=== PATIENT | female | born 1940 | race Hispanic/Latino ===

== ENCOUNTER → 2018-03-13 | Outpatient (CLI) | payer OTHER ==
[~2018-03-13] MED LIST: CHOL100040 PO; LISI1TAB13 PO; RALO60TA PO; SIMV40TA59 PO
== END | disposition home or self-care (01) ==
LOC: RAH 11:44
PROVIDERS: ATTEND Family Medicine
DX: Z12.31 Encounter for screening mammogram for malignant neoplasm of breast (principal)
CPT/HCPCS: 77067

== ENCOUNTER 2019-02-25 06:00 | Day surgery (SDC) | payer OTHER ==
[~2019-02-25] VITALS: Ht 149.9 cm; Wt 63.8 kg
[~2019-02-25 06:00] MED LIST changes: -LISI1TAB13 PO; +LISI1TAB29 PO; +SODIUM CHLORIDE 0.9% 1000ML 1,000 ML IV ONE
[2019-02-25 06:59] VITALS: BP 127/59
[2019-02-25] MEDS ORDERED: ALEN70TA10 PO (07:34)
[2019-02-25] MEDS ORDERED: GLIM4TAB5 PO (07:34)
[2019-02-25] MEDS ORDERED: ASPI-555 PO (07:34)
[2019-02-25] MEDS ORDERED: ATOR20TA65 PO (07:34)
[2019-02-25] MEDS ORDERED: PROPOFOL 10 MG/ML 20ML VIAL IV ONE (08:26)
[2019-02-25] MEDS ORDERED: LIDOCAINE HCL 2% 20ML ONE (08:26)
[2019-02-25] MEDS ORDERED: SODIUM CHLORIDE 0.9% 10 ML VIAL ONE (08:31)
[2019-02-25] MEDS ORDERED: PHENYLEPHRINE HCL 10 MG/ML 1ML VIAL IV ONE (08:31)
[2019-02-25 08:45] VITALS: BP 140/63
[2019-02-25 08:50] VITALS: BP 108/81
[2019-02-25 08:55] VITALS: BP 110/81
[2019-02-25 09:00] VITALS: BP 116/81
[2019-02-25 09:05] VITALS: BP 114/81
--- NOTE | 2019-02-25 09:15 | NUR ---
dc pt dc home via wc no distress noted. pt denied any pain or discomforts. pt accompanied by daughter.
== END 2019-02-25 09:15 | disposition home or self-care (01) ==
LOC: ENDO 06:00 → DAH 06:00 → ENDO 09:15
PROVIDERS: ATTEND Internal Medicine Gastroenterology
DX: Z12.11 Encounter for screening for malignant neoplasm of colon (principal); D12.4 Benign neoplasm of descending colon; D12.3 Benign neoplasm of transverse colon; M81.0 Age-related osteoporosis without current pathological fracture; E11.22 Type 2 diabetes mellitus with diabetic chronic kidney disease; I12.9 Hypertensive chronic kidney disease with stage 1 through stage 4 chronic kidney disease, or unspecified chronic kidney disease; N18.3 Chronic kidney disease, stage 3 (moderate); E78.00 Pure hypercholesterolemia, unspecified; E11.42 Type 2 diabetes mellitus with diabetic polyneuropathy; Z86.010 Personal history of colon polyps; Z80.0 Family history of malignant neoplasm of digestive organs; Z79.82 Long term (current) use of aspirin; Z79.899 Other long term (current) drug therapy
CPT/HCPCS: 45385; 82948; 88305; A4215; A4221; A4222; A4223; A4606; A4615; A4663; J2370; J2704; J3490; J7030; 45380

== ENCOUNTER → 2019-03-17 | Outpatient (CLI) | payer OTHER ==
[~2019-03-17] MED LIST changes: +ALEN70TA10 PO; +ASPI-555 PO; +ATOR20TA65 PO; +GLIM4TAB5 PO; -RALO60TA PO; -SIMV40TA59 PO; -SODIUM CHLORIDE 0.9% 1000ML 1,000 ML IV ONE
== END | disposition home or self-care (01) ==
LOC: RAH 10:00
PROVIDERS: ATTEND Family Medicine
DX: Z12.31 Encounter for screening mammogram for malignant neoplasm of breast (principal); E66.09 Other obesity due to excess calories
CPT/HCPCS: 77067

== ENCOUNTER → 2020-03-19 | Outpatient (CLI) | payer OTHER ==
[~2020-03-19] MED LIST changes: -ALEN70TA10 PO; +ALEN70TA69 PO; -ASPI-555 PO; +ASPI-556 PO; +GLIM4TAB36 PO; -GLIM4TAB5 PO
== END | disposition home or self-care (01) ==
LOC: RAH 09:08
PROVIDERS: ATTEND Family Medicine
DX: Z12.31 Encounter for screening mammogram for malignant neoplasm of breast (principal)
CPT/HCPCS: 77067

== ENCOUNTER → 2021-03-21 | Outpatient (CLI) | payer OTHER ==
[~2021-03-21] MED LIST changes: -ALEN70TA69 PO; +ALEN70TA80 PO; -LISI1TAB29 PO; +LISI1TAB53 PO
== END | disposition home or self-care (01) ==
LOC: RAH 08:55
PROVIDERS: ATTEND Family Medicine
DX: Z12.31 Encounter for screening mammogram for malignant neoplasm of breast (principal)
CPT/HCPCS: 77067

== ENCOUNTER → 2022-03-22 | Outpatient (CLI) | payer OTHER | END | disposition home or self-care (01) | LOC: RAH 09:47 | PROVIDERS: ATTEND Family Medicine | DX: Z12.31 Encounter for screening mammogram for malignant neoplasm of breast (principal) | CPT/HCPCS: 77063; 77067 ==

== ENCOUNTER → 2023-03-23 | Outpatient (CLI) | payer OTHER | END | disposition home or self-care (01) | LOC: RAH 09:57 | PROVIDERS: ATTEND Family Medicine | DX: Z12.31 Encounter for screening mammogram for malignant neoplasm of breast (principal) | CPT/HCPCS: 77067 ==

== ENCOUNTER → 2024-03-24 | Outpatient (CLI) | payer OTHER ==
--- NOTE | 2024-03-24 10:11 | HMCIMG ---
SCREENING MAMMOGRAM REASON: Annual Exam COMPARISON: 03/23/2023 TECHNIQUE: CC and MLO views of the bilateral breasts were performed.CAD was performed as well. FINDINGS: Parenchymal density: There are scattered areas of fibroglandular density. There are no focal mass lesions. There are no pathologic appearing calcifications. There is no evidence of architectural distortion or skin thickening. IMPRESSION: Normal screening mammogram The patient was entered into a reminder system with a target due date for their next mammogram. BI-RADS CATEGORY 1: NEGATIVE Recommend monthly self breast exam as well as annual clinical examination. A negative x-ray should not delay biopsy if a dominant or clinically suspicious mass is present, since 8-10% of cancers are not identified by mammography. Dense breasts particularly, may obscure an underlying neoplasm. Some of these may be detected clinically and therefore, clinical examination is an essential part of breast evaluation.
== END | disposition home or self-care (01) ==
LOC: RAH 09:03
PROVIDERS: ATTEND Family Medicine
DX: Z12.31 Encounter for screening mammogram for malignant neoplasm of breast (principal); R92.30 Dense breasts, unspecified
CPT/HCPCS: 77067

== ENCOUNTER 2024-09-05 18:02 | Observation (INO) | payer OTHER ==
[~2024-09-05] VITALS: Ht 134.6 cm; Wt 65.9 kg
--- NOTE | 2024-09-05 18:56 | EKG ---
[facility] Test Date: 2024-09-05 Test Time: 18:53:30 Pat Name: LIBIA SEAY Department: ED Room: 317 Gender: F Pig Handler: [id number] : 1940 Requested By: JIMENA NOLAND Order Number: [id number] Reading MD: Carolina Perez Measurements Intervals [place] Rate: 61 P: 40 NE: 132 QRS: -14 QRSD: 75 T: 35 QT: 411 QTc: 413 Interpretive Statements Sinus rhythm Inferior infarct, old No previous ECG available for comparison Electronically Signed On 09-06-2024 14:29:44 CDT by Carolina Perez Please click the below link to view image of tracing.
[2024-09-05] MEDS: ondanSETRON 4MG INJ IVP ONE ×2 (19:03→20:40)
[2024-09-05] MEDS: 0.9% NACL 500ML IV.SOLN 500 ML IV ONE (19:03)
--- NOTE | 2024-09-05 19:14 | HMCIMG ---
PORTABLE CHEST RADIOGRAPH INDICATION: sob COMPARISON: 05/11/2012 FINDINGS: alarm security or surveillance monitor leads overlie the field of view. Heart size is normal. Mild calcific plaque is present along the aortic arch moe. The pulmonary vascularity and mikki appear normal. No abnormal pulmonary parenchymal opacity or consolidation identified. No significant pleural effusion noted. No pneumothorax detected. IMPRESSION: No radiographic evidence for any acute cardiopulmonary process.
[2024-09-05 19:18] LABS: HEMATOCRIT 38.4 % (36-48); LYMPHOCYTES # (AUTO) 0.7 K/uL (1.0-4.8); LYMPHOCYTES % (AUTO) 27.4 % (21.0-51.0); MEAN CORPUSCULAR HEMOGLOBIN 30.3 pg (27.0-33.0); MEAN CORPUSCULAR HGB CONC 33.3 g/dL (32.0-36.0); MEAN CORPUSCULAR VOLUME 90.8 fL (79-99); MONOCYTES # (AUTO) 0.3 K/uL (0.1-1.0); NEUTROPHILS # (AUTO) 1.7 K/uL (1.8-7.7); NEUTROPHILS % (AUTO) 62.6 % (40.0-77.0); PLATELET COUNT (AUTO) 181 K/uL (130-400); RED BLOOD CELL COUNT(AUTO) 4.23 MIL/uL (4.00-5.50); RED CELL DISTRIBUTION WIDTH 12.5 % (11.0-15.5); WHITE BLOOD COUNT (AUTO) 2.7 K/uL (4.8-10.8)
[2024-09-05 19:19] LABS: CREATININE 1.1 mg/dL (0.5-1.0); POTASSIUM 4.4 mmol/L (3.5-5.1)
[2024-09-05 19:25] LABS: ALBUMIN 3.6 g/dL (3.5-5.0); BILIRUBIN,DIRECT 0.1 mg/dL (0.0-0.3); BILIRUBIN,TOTAL 0.5 mg/dL (0.2-1.0); MAGNESIUM 2.3 mg/dL (1.80-2.40); TOTAL PROTEIN, SERUM 7.4 g/dL (6.0-8.3)
[2024-09-05 19:30] LABS: B-TYPE NATRIURETIC PEPTIDE 44 pg/mL (0-100)
[2024-09-05 19:58] LABS: BAND NEUTROPHILS % (MANUAL) 1 % (0-2); LYMPHOCYTES % (MANUAL) 25 % (22-44); MAN.DIFF COMMENT-IMPRESSION MANUAL DIFFERENTIAL; MONOCYTES % (MANUAL) 15 % (2-9); PLATELET MORPHOLOGY COMMENT ADEQUATE; SEGMENTED NEUTROPHILS % 59 % (40-70); TOTAL CELLS COUNTED 100; WBC MORPHOLOGY CONSISTENT W/DIFF
--- NOTE | 2024-09-05 20:01 | HMCIMG ---
CT HEAD WITHOUT CONTRAST INDICATION: Nausea vomiting and dizziness TECHNIQUE: Noncontrast axial helical CT images from the vertex through the skull base using 5 mm slice thickness without contrast material. CT was performed with one or more of the following dose reduction techniques: Automated exposure control, adjustment of the mA and/or kV according to patient size, or use of iterative reconstruction technique. COMPARISON: None FINDINGS: The cerebral and cerebellar hemispheres are age-appropriate in appearance. No evidence for abnormal extra-axial fluid collections or masses. The ventricles and sulci are normal in size and configuration. No evidence for intracranial parenchymal, epidural, or subdural hemorrhage, mass effect or midline shift. The hayes-white matter differentiation is well preserved. No secondary evidence to suggest acute ischemia. The brainstem and cerebellum appear normal. The visualized orbits appear unremarkable. The visible paranasal sinuses and mastoid air cells are clear. The calvarium appears normal. IMPRESSION: No acute intracranial process identified.
--- NOTE | 2024-09-05 20:26 | ERN ---
General Chief Complaint: Nausea,Vomiting,Diarrhea Stated Complaint: COVID+, MULTIPLE COMPLAINTS Time Seen by MD: 18:03 Time Seen by Midlevel: 18:03 Source: patient History of Present Illness Initial Comments The patient is an 84-year-old female with a past medical history of type 2 diabetes, hypertension, and chronic kidney disease presenting to the emergency department for evaluation of nausea/vomiting, and dizziness. The patient states she has been unable to hold any food down for the last couple of days. She tested positive for COVID last week. She saw her primary care doctor and was started on azithromycin but she has been unable to keep anything down including medication. She reports diffuse abdominal pain that is rated 8/10. Allergies: Coded Allergies: No Known Allergies (Unverified Allergy, 11/13/12) Home Meds Reported Medications Atorvastatin Calcium (Atorvastatin Calcium) 20 Mg Tablet, 20 MG PO DAILY, TAB 02/25/19 Alendronate Sodium (Alendronate Sodium) 70 Mg Tablet, 70 MG PO QWEEK, TAB 02/25/19 Aspirin (Aspir 81) 81 Mg Tablet.dr, 81 MG PO DAILY, TAB 02/25/19 Glimepiride (Glimepiride) 4 Mg Tablet, 4 MG PO DAILY, TAB 02/25/19 Cholecalciferol (Vitamin D3) (Vitamin D3) 1,000 Unit Capsule, 1000 UNIT PO DAILY, CAP 12/31/13 Lisinopril/Hydrochlorothiazide (Lisinopril-Hctz 20-25 mg Tab) 1 Each Tablet, 1 EACH PO DAILY, TAB 12/31/13 Past Medical History Past Medical History: Diabetes-Type II, Hypertension, Renal Disese Past Surgical History: None ROS Dictation CONSTITUTIONAL: Negative except for HPI HEAD/FACE: Negative except for HPI EENT: Negative except for HPI RESPIRATORY: Negative except for HPI GASTROINTESTINAL/ABDOMINAL: Negative except for HPI GENITOURINARY: Negative except for HPI MUSCULOSKELETAL: Negative except for HPI INTEGUMENTARY: Negative except for HPI NEUROLOGICAL/PSYCH: Negative except for HPI HEMATOLOGIC/LYMPHATIC: Negative except for HPI All Systems Negative, Except as noted above. 13 point review of systems assessed and all negative except for above. Physical Exam Physical Exam Dictation Vital Signs reviewed General Appearance: Alert, oriented x 3, no acute distress, well developed, nourished. Head and Face: non-traumatic. Eyes: PERRL, pink conjunctivas, eyelid no trauma, anterior chamber with arcus senilis. Ears: Pinnas intact and no signs of trauma or erythema ear canals clear and no discharge TM no erythema Nose: No discharge, no bleeding. Oropharynx: Mouth normal, tongue pink, pharynx clear,no erythema, tonsils no exudates, no abscesses noted, mucous membrane moist Neck: Supple, non-tender, no thyromegaly, no masses, no JVD, no bruits Breast:Deferred Chest:No tenderness, no crepitus, no paradoxical movement, no retractions Lungs:Clear, well-ventilated, symmetric, no rales, no wheezing, no rhonchi, no stridor, good breath sounds bilaterally Heart: Regular rate, regular rhythm, no murmur, no gallops Vascular: no peripheral edema, Abdomen: Soft, positive bowel sounds, nondistended, no guarding, nontender, no rebound, no masses no hepatomegaly, no splenomegaly, no Mansfield's sign, no hernias. Rectal: Deferred Genital: Deferred Neurological: Subjective dizziness, normal speech, unable to ambulate in his straight line secondary to dizziness Musculoskeletal: Neck nontender, full range of motion, back nontender, full range of motion, Extremities: nontender, full range of motion Skin: Color pink, dry, no turgor, no rash, no lacerations, no abrasions, no contusions. Lymphatic: Deferred Results Laboratory and Microbiology Lab and Micro Result Laboratory Tests Test 09/05/24 19:00 White Blood Count 2.7 K/uL (4.8-10.8) L Red Blood Count 4.23 MIL/uL (4.00-5.50) Hemoglobin 12.8 g/dL (12.0-16.0) Hematocrit 38.4 % (36-48) Mean Corpuscular Volume 90.8 fL (79-99) Mean Corpuscular Hemoglobin 30.3 pg (27.0-33.0) Mean Corpuscular Hemoglobin Concent 33.3 g/dL (32.0-36.0) Red Cell Distribution Width 12.5 % (11.0-15.5) Platelet Count 181 K/uL (130-400) Mean Platelet Volume 10.1 fL (7.5-10.5) Immature Granulocyte % (Auto) 0.0 % (0-1) Neutrophils (%) (Auto) 62.6 % (40.0-77.0) Lymphocytes (%) (Auto) 27.4 % (21.0-51.0) Monocytes (%) (Auto) 10.0 % (3.0-13.0) Eosinophils (%) (Auto) 0.0 % (0.0-8.0) Basophils (%) (Auto) 0.0 % (0.0-5.0) Neutrophils # (Auto) 1.7 K/uL (1.8-7.7) L Lymphocytes # (Auto) 0.7 K/uL (1.0-4.8) L Monocytes # (Auto) 0.3 K/uL (0.1-1.0) Eosinophils # (Auto) 0.00 K/uL (0.00-0.70) Basophils # (Auto) 0.00 K/uL (0.00-0.20) Absolute Immature Granulocyte (auto 0.00 K/uL (0-1) Segmented Neutrophils % 59 % (40-70) Band Neutrophils % 1 % (0-2) Lymphocytes % (Manual) 25 % (22-44) Monocytes % (Manual) 15 % (2-9) H Nucleated Red Blood Cells 0.0 % (0.0-0.19) Differential Comment MANUAL DIFFERENTIAL White Cell Morphology Comment CONSISTENT W/DIFF Platelet Morphology Comment ADEQUATE Red Blood Cell Morphology See comments Sodium Level 136 mmol/L (136-145) Potassium Level 4.4 mmol/L (3.5-5.1) Chloride Level 98 mmol/L (101-111) L Carbon Dioxide Level 27 mmol/L (21-32) Blood Urea Nitrogen 20 mg/dL (7-18) H Creatinine 1.1 mg/dL (0.5-1.0) H Glomerular Filtration Rate Calc 50 mL/min (>90) Random Glucose 160 mg/dL (70-105) H Total Calcium 8.9 mg/dL (8.5-10.1) Magnesium Level 2.30 mg/dL (1.80-2.40) Total Bilirubin 0.5 mg/dL (0.2-1.0) Direct Bilirubin 0.1 mg/dL (0.0-0.3) Aspartate Amino Transf (AST/SGOT) 55 U/L (10-37) H Alanine Aminotransferase (ALT/SGPT) 58 U/L (12-78) Alkaline Phosphatase 69 U/L (50-136) Total Creatine Kinase 56 U/L (21-232) # Troponin I High Sensitivity 11 ng/L (4-50) B-Type Natriuretic Peptide 44 pg/mL (0-100) Total Protein 7.4 g/dL (6.0-8.3) Albumin 3.6 g/dL (3.5-5.0) Lipase 63 U/L (16-77) Labs Reviewed?: Yes MDM MDM: Differential diagnosis: COVID-19, dehydration, electrolyte abnormality Rationale: Tests considered and ordered secondary to shared decision making include: Previous outside records reviewed: Old ER visits. Risk of complication and/or morbidity or mortality of patient management: None Medications-Per medication reconciliation Need for hospitalization: Patient does meet criteria for hospitalization. Need for emergency major/minor surgery: No There are no social concerns with this patient. Prescription drug management Prescriptions will include symptomatic care Patient's prior external medical records from other ER visits were reviewed by me as indicated. Prior testing and results from previous visits were reviewed. Prior tests were taken into account with medical decision making and resource utilization, independent historian/historians were used to obtain complete medical history. I independently interpreted the test that were performed, results were reviewed by me and considered findings on radiology if ordered. Medical management and examination interpretation discussions were had by me with other qualified healthcare professionals as indicated for the patient's care. ED Course Orders Procedure Category Date Status Time 12 Lead Ekg Tracing- EKG 09/05/24 Complete Technical 18:22 Cbc With Differential LAB 09/05/24 Complete 18:22 Basic Metabolic Panel LAB 09/05/24 Complete 18:22 B-Type Natriuretic LAB 09/05/24 Complete Peptide 18:22 Creatine Kinase, Total LAB 09/05/24 Complete 18:22 Magnesium LAB 09/05/24 Complete 18:22 Hepatic Function Panel LAB 09/05/24 Complete 18:22 Lipase LAB 09/05/24 Complete 18:22 Troponin I High LAB 09/05/24 Complete Sensitivity 18:22 Chest 1vw RAD 09/05/24 Resulted 18:22 Ct Head/Brain W/O CT 09/05/24 Resulted Contrast 18:22 Ondansetron 4mg Inj PHA 09/05/24 Complete (Zofran 4mg Inj) 18:30 0.9% Nacl 500ml PHA 09/05/24 Complete Iv.Soln (Ns 500ml 18:30 Manual Differential LAB 09/05/24 Complete 19:00 Current Medications Medications (Trade) Dose Ordered Sig/Monique Route PRN Reason Start Time Stop Time Status Last Admin Dose Admin Ondansetron HCl (zoFRAN 4MG INJ) 4 mg ONCE ONCE IVP 09/05/24 18:30 09/05/24 18:31 DC 09/05/24 19:03 Sodium Chloride 500 ml @ 0 mls/hr ONCE ONCE IV 09/05/24 18:30 09/05/24 18:31 DC 09/05/24 19:03 Vital Signs Date Time Temp Pulse Resp B/P (MAP) Pulse Ox O2 Delivery O2 Flow Rate FiO2 09/05/24 19:08 98.4 61 13 148/55 94 Room Air* 0 21 09/05/24 18:12 98.2 67 21 147/60 97 [place] [address] IMAGING REPORT Signed PATIENT: LIBIA SEAY MR#: [id number] : 1940 SEX: F AGE: 84 LOCATION: [facility] ORDER 23 STATUS: REG REPORT#: [id number] SERVICE 21 REASON: dizziness w/n/v ORDERING PHYSICIAN: JIMENA NOLAND PROCEDURE: HEAD WO - CT HEAD/BRAIN W/O CONTRAST CT HEAD WITHOUT CONTRAST INDICATION: Nausea vomiting and dizziness TECHNIQUE: Noncontrast axial helical CT images from the vertex through the skull base using 5 mm slice thickness without contrast material. CT was performed with one or more of the following dose reduction techniques: Automated exposure control, adjustment of the mA and/or kV according to patient size, or use of iterative reconstruction technique. COMPARISON: None FINDINGS: The cerebral and cerebellar hemispheres are age-appropriate in appearance. No evidence for abnormal extra-axial fluid collections or masses. The ventricles and sulci are normal in size and configuration. No evidence for intracranial parenchymal, epidural, or subdural hemorrhage, mass effect or midline shift. The hayes-white matter differentiation is well preserved. No secondary evidence to suggest acute ischemia. The brainstem and cerebellum appear normal. The visualized orbits appear unremarkable. The visible paranasal sinuses and mastoid air cells are clear. The calvarium appears normal. IMPRESSION: No acute intracranial process identified. DICTATED BY: MARIETTA MAURICE MD DATE: 09/05/241952 ELECTRONICALLY SIGNED BY: MARIETTA MAURICE MD DATE: 09/05/242000 [place] [address] [place] [id number] IMAGING REPORT Signed PATIENT: LIBIA SEAY MR#: [id number] : 1940 SEX: F AGE: 84 LOCATION: [facility] ORDER 23 STATUS: [facility] REPORT#: [id number] SERVICE 21 REASON: sob ORDERING PHYSICIAN: JIMENA NOLAND PROCEDURE: CXR1VW - CHEST 1VW PORTABLE CHEST RADIOGRAPH INDICATION: sob COMPARISON: 05/11/2012 FINDINGS: public relations writer leads overlie the field of view. Heart size is normal. Mild calcific plaque is present along the aortic arch moe. The pulmonary vascularity and mikki appear normal. No abnormal pulmonary parenchymal opacity or consolidation identified. No significant pleural effusion noted. No pneumothorax detected. IMPRESSION: No radiographic evidence for any acute cardiopulmonary process. DICTATED BY: MARIETTA MAURICE MD DATE: 09/05/241906 ELECTRONICALLY SIGNED BY: MARIETTA MAURICE MD DATE: 09/05/241913 DX & DISP Disposition: Inpatient Decision to Admit Date: September 05, 2024 Departure Impression: Primary Impression: COVID-19 Additional Impressions: Leukopenia, Dizziness, Nausea and vomiting Condition: Stable Referrals: TERENCE CHAPPELL MD (PCP) Time of Disposition: 20:23 I have reviewed the case, and I agree with, Diagnosis and Plan I performed the substantive portion of the visit. I have reviewed and person ally made and approve the management plan that is documented in the note by myself or the MAYO. I acknowledge for responsibility for the patient's management plan. JIMENA NOLAND September 05, 2024 20:26
[2024-09-05] MEDS ORDERED: cloNIDine HCL 0.1 MG TABLET PO PRN (20:30)
[2024-09-05] MEDS ORDERED: ondanSETRON 4MG INJ IVP PRN (20:30)
[2024-09-05] MEDS ORDERED: LAbetaLOL 20MG SYG IV PRN (20:30)
--- NOTE | 2024-09-05 20:33 | HP ---
[facility] HISTORY & PHYSICAL Date Patient Seen: September 05, 2024 Time of Visit: 2214 Supervising Physician: [Dr. Shaquille Partida] Primary Care Physician: [Dr. Celine Matthews ] Outpatient Specialists: [ ] Inpatient Consults: [ ] PROBLEM LIST: Intractable vomiting-POA Leukopenia-POA Dehydration-POA Mild MALLORY-POA COVID infection, diagnosed 09/04/2024-POA, non hypoxemic Suspected viral syndrome-POA Primary hypertension CKD Diabetes mellitus PLAN: -Admit to medsurg unit -Obtain CT AP -Manage abdominal pain and N/V PRN -Clear liquids -IV fluids for hydration -we will obtain COVID and flu screen, obtain respiratory culture -obtain COVID labs, ferritin, CRP and D-dimer -patient refused Paxlovid due to pre-existing kidney disease -supportive care, manage cough and fever p.r.n. HPI: [Patient is 84-year-old female with PMH significant for CKD, HTN and diabetes mellitus who was presented to the ED accompanied by her daughter concerning intractable vomiting and persistent dizziness. Patient was in her usual state of health when on Sunday she started to feel sick. Daughter claims that she was feeling unsteady and could not walk due to severe dizziness. Yesterday, she went to her PCP and was screened for COVID which turned back positive and was started on azithromycin p.o.. However, today patient started to feel weak due to nonstop vomiting. She could not hold anything down. Daughter denies any previous history of gastroparesis. Apparently, patient has never been hospitalized in the past and never had COVID infection at all. Significant negatives were fever, chills, chest pain, back pain, dysuria, urinary symptoms or syncope. Patient apparently broke out in cold sweats today. At the ED, her preliminary lab works were concerning for leukopenia of 2.7 with mild MALLORY. Patient was given Zofran and IV fluids. A follow-up CT scan of the abdomen and pelvis was unremarkable. Physical assessment was unrevealing with no focal neurologic deficits her abdominal tenderness. Goals of care were discussed with the patient and daughter verbalizes understanding and agreement.] PAST MEDICAL HX: see above PAST SURGICAL HX: noncontributory SOCIAL HISTORY: No tobacco, ETOH, or illicit drug use Coded Allergies: No Known Allergies (Unverified Allergy, 11/13/12) REVIEW OF SYSTEMS: 12 point ROS reviewed with patient. Pertinent positives mentioned above. Otherwise negative. PHYSICAL EXAM: GENERAL: alert, weak, awake oriented x 3 HEENT: EOMI, Sclera non icteric, moist mucosa NECK: Supple, no JVD, trachea midline LUNGS: Clear breath sounds bilaterally. No wheezes HEART: Regular rate and rhythm. Normal S1 and S2, without murmurs ABD: Abdomen soft, nontender. Bowel sounds present EXT: No clubbing cyanosis or edema NEURO: Alert and oriented to person, follows commands Vital Signs (last 8hr) Date Time Temp Pulse Resp B/P (MAP) Pulse Ox O2 Delivery O2 Flow Rate FiO2 09/05/24 19:08 98.4 61 13 148/55 94 Room Air* 0 21 09/05/24 18:12 98.2 67 21 147/60 97 Room Air LABS: Hematology Labs: Test 09/05/24 19:00 Range/Units White Blood Count 2.7 L 4.8-10.8 K/uL Red Blood Count 4.23 4.00-5.50 MIL/uL Hemoglobin 12.8 12.0-16.0 g/dL Hematocrit 38.4 36-48 % Mean Corpuscular Volume 90.8 79-99 fL Mean Corpuscular Hemoglobin 30.3 27.0-33.0 pg Mean Corpuscular Hemoglobin Concent 33.3 32.0-36.0 g/dL Red Cell Distribution Width 12.5 11.0-15.5 % Platelet Count 181 130-400 K/uL Mean Platelet Volume 10.1 7.5-10.5 fL Immature Granulocyte % (Auto) 0.0 0-1 % Neutrophils (%) (Auto) 62.6 40.0-77.0 % Lymphocytes (%) (Auto) 27.4 21.0-51.0 % Monocytes (%) (Auto) 10.0 3.0-13.0 % Eosinophils (%) (Auto) 0.0 0.0-8.0 % Basophils (%) (Auto) 0.0 0.0-5.0 % Neutrophils # (Auto) 1.7 L 1.8-7.7 K/uL Lymphocytes # (Auto) 0.7 L 1.0-4.8 K/uL Monocytes # (Auto) 0.3 0.1-1.0 K/uL Eosinophils # (Auto) 0.00 0.00-0.70 K/uL Basophils # (Auto) 0.00 0.00-0.20 K/uL Absolute Immature Granulocyte (auto 0.00 0-1 K/uL Segmented Neutrophils % 59 40-70 % Band Neutrophils % 1 0-2 % Lymphocytes % (Manual) 25 22-44 % Monocytes % (Manual) 15 H 2-9 % Nucleated Red Blood Cells 0.0 0.0-0.19 % Differential Comment MANUAL DIFFERENTIAL White Cell Morphology Comment CONSISTENT W/DIFF Platelet Morphology Comment ADEQUATE Red Blood Cell Morphology See comments Chemistry Labs: Test 09/05/24 19:00 Range/Units Sodium Level 136 136-145 mmol/L Potassium Level 4.4 3.5-5.1 mmol/L Chloride Level 98 L 101-111 mmol/L Carbon Dioxide Level 27 21-32 mmol/L Blood Urea Nitrogen 20 H 7-18 mg/dL Creatinine 1.1 H 0.5-1.0 mg/dL Glomerular Filtration Rate Calc 50 >90 mL/min Random Glucose 160 H 70-105 mg/dL Total Calcium 8.9 8.5-10.1 mg/dL Magnesium Level 2.30 1.80-2.40 mg/dL Total Bilirubin 0.5 0.2-1.0 mg/dL Direct Bilirubin 0.1 0.0-0.3 mg/dL Aspartate Amino Transf (AST/SGOT) 55 H 10-37 U/L Alanine Aminotransferase (ALT/SGPT) 58 12-78 U/L Alkaline Phosphatase 69 50-136 U/L Total Creatine Kinase 56 # 21-232 U/L Troponin I High Sensitivity 11 4-50 ng/L B-Type Natriuretic Peptide 44 0-100 pg/mL Total Protein 7.4 6.0-8.3 g/dL Albumin 3.6 3.5-5.0 g/dL Lipase 63 16-77 U/L DIAGNOSTICS / RADIOLOGY RESULTS: [ ] PLAN NEURO: Minimize central acting medications as possible. Maintain fall precautions, adequate lighting during the day PULMONARY: Supplemental 02 as needed. Maintain aspiration precautions at all times CARDIOVASCULAR: Follow hemodynamics. Vital signs per facility protocol GI & NUTRITION: Continue with nutritional support. Continue stool softeners and laxatives as needed. KIDNEYS & ELECTROLYTES: Strict monitoring of intake, output and overall fluid balance. Avoid nephrotoxic medications to the extent possible. Medications to be dosed according to renal function. Monitor electrolytes and replace as needed ENDOCRINE: Maintain blood glucose between 100-180 at all times. Hypoglycemia protocol in place INFECTIOUS DISEASE: Trend temperature, WBC and procalcitonin level Follow cultures, deescalate antibiotics as soon as possible. Panculture if new onset fever ONCOLOGY/HEMATOLOGY/COAGULATION: Monitor for s/s of bleeding Monitor hemoglobin, coagulation studies as needed SKIN: Pressure ulcer prevention per facility protocol Specialty mattress ORTHO/REHAB: Continue PT/OT Prophylaxis: Continue GI and DVT prophylaxis Code Status: Full Resuscitation Disposition: TBD Other: Total patient care time: 35 minutes HOLDEN YAP September 05, 2024 20:33
[2024-09-05] MEDS: mecliZINE HCL 25 MG TABLET PO ONE (20:40)
[2024-09-05] MEDS: 0.9%NACL 1000ML 1,000 ML IV SCH (20:45)
[2024-09-05] MEDS: INSULIN humuLIN R 100 UNIT/ML 3ML SQ SCH (20:58)
--- NOTE | 2024-09-05 21:12 | HMCIMG ---
CT ABDOMEN WITHOUT CONTRAST. CT PELVIS WITHOUT CONTRAST. INDICATION: Intractable vomiting TECHNIQUE: Routine transaxial imaging using 5 mm slice thickness through the abdomen and pelvis without the administration of IV contrast. Thin slice reconstructions are also provided. Coronal and sagittal reformatted images acquired for interpretation. CT was performed with one or more of the following dose reduction techniques: Automated exposure control, adjustment of the mA and/or kV according to patient size, or use of iterative reconstruction technique. COMPARISON: None FINDINGS: ON NONCONTRAST IMAGING: ABDOMEN: Heart size is normal. Visible lung bases are clear. No abnormal renal calcifications, hydronephrosis, perinephric inflammation, or proximal hydroureter detected. The liver is normal in size and smooth in contour without biliary duct dilation. The spleen is normal in size and attenuation. The gallbladder appears normal. The pancreas appears normal without pancreatic duct dilation. The adrenal glands appear normal. No significant abdominal, retrocrural or retroperitoneal adenopathy noted. No evidence for intra-abdominal free air or organized fluid collection. No aortic aneurysmal dilation identified. PELVIS: No abnormal calcifications within the urinary bladder or distal ureters. No evidence for free air or organized pelvic fluid collection. No significant pelvic adenopathy detected. Visualized small and large bowel loops appear unremarkable. Terminal ileum appears unremarkable. The appendix appears normal. Visible osseous structures are intact. IMPRESSION: No evidence for any acute intra-abdominal or pelvic process.
[2024-09-05 21:20] VITALS: BP 152/68; PULSE 63; RESP 17; TEMP 97.9
[2024-09-05 21:30] VITALS: O2SAT 97
--- NOTE | 2024-09-05 21:41 | NUR ---
home meds asked the patient for her home medications. she will let her daughter know to bring them in and give them to the nursing staff
[2024-09-05] MEDS ORDERED: SITA100T12 PO (22:26)
[2024-09-05] MEDS ORDERED: LOSA25TA41 PO (22:26)
[2024-09-05 23:02] LABS: INFLUENZA TYPE A Negative For Type A (NEGATIVE); INFLUENZA TYPE B Negative For Type B (NEGATIVE)
[2024-09-05] MEDS: ENOXAPARIN SODIUM 40 MG/0.4 ML SYRINGE SQ SCH (23:16)
[2024-09-05 23:21] LABS: COVID19 (SARS ANTIGEN RAPID) POSITIVE FOR SARS AG (NEGATIVE)
[2024-09-05 23:44] VITALS: BP 146/71; PULSE 56; RESP 16; TEMP 97.7
[2024-09-06] VITALS (10 sets, daily range): BP systolic 140–166; BP diastolic 46–64; PULSE 57–68; RESP 16–19; TEMP 97.2–98.3; O2SAT 96–97
[2024-09-06] MEDS: SODIUM CHLORIDE 3% FOR INHALATION 4 ML/AMP VIAL.NEB IH ONE ×3 (00:20→10:42)
[2024-09-06] MEDS: AZITHROMYCIN 500MG+NS 250ML 250 ML IVPB SCH (04:00)
[2024-09-06 05:50] LABS: HEMATOCRIT 34.8 % (36-48); LYMPHOCYTES # (AUTO) 1.4 K/uL (1.0-4.8); LYMPHOCYTES % (AUTO) 50.9 % (21.0-51.0); MEAN CORPUSCULAR HEMOGLOBIN 29.8 pg (27.0-33.0); MEAN CORPUSCULAR VOLUME 90.2 fL (79-99); MONOCYTES # (AUTO) 0.4 K/uL (0.1-1.0); MONOCYTES % (AUTO) 14.1 % (3.0-13.0); PLATELET COUNT (AUTO) 160 K/uL (130-400); RED BLOOD CELL COUNT(AUTO) 3.86 MIL/uL (4.00-5.50); RED CELL DISTRIBUTION WIDTH 12.6 % (11.0-15.5); WHITE BLOOD COUNT (AUTO) 2.8 K/uL (4.8-10.8)
[2024-09-06 06:11] LABS: INR 1.05 (0.85-1.15); PROTHROMBIN TIME 11.1 SEC (9.6-11.6)
[2024-09-06 06:18] LABS: CREATININE 0.8 mg/dL (0.5-1.0); MAGNESIUM 2.2 mg/dL (1.80-2.40); PHOSPHORUS 3.4 mg/dL (2.5-4.9); POTASSIUM 3.8 mmol/L (3.5-5.1); THYROID STIMULATING HORMONE 1.64 uIU/mL (0.36-3.74)
[2024-09-06] MEDS: IpraTROPium/alBUTERol SULFATE 3 ML SOLUTION IH PRN (07:15)
--- NOTE | 2024-09-06 07:23 | NUR ---
Hypertonic Solution given with Duoneb Treatment. Addendum: 09/06/24 at 0724 by BARBIE NOLAND RT Amended: Links added.
--- NOTE | 2024-09-06 08:42 | HMCIMG ---
ULTRASOUND VENOUS DOPPLER, BILATERAL LOWER EXTREMITIES INDICATION: Bilateral lower extremity pain and swelling TECHNIQUE: Routine grayscale and color Doppler ultrasound of the bilateral lower extremity veins performed. COMPARISON: No priors. FINDINGS: The demonstrated veins of the bilateral lower extremity including the common femoral vein, femoral vein, and popliteal vein are associated with normal compressibility. IMPRESSION: No sonographic evidence for deep venous thrombosis within the bilateral lower extremity veins.
[2024-09-06] MEDS: dexaMETHasone 4 MG TAB PO SCH (09:50)
[2024-09-06] MEDS: PANTOPrazole 40 MG TAB DR PO SCH (09:50)
--- NOTE | 2024-09-06 10:30 | NUR ---
SPOKE TO NURSE UBALDO MENTIONED TO HER SINCE THE PATIENT IS COVID POSITIVE VQ SCAN WILL BE PLACED ON HOLD.
--- NOTE | 2024-09-06 16:14 | PN ---
[facility] PROGRESS NOTE Date Patient Seen: September 06, 2024 Time of Visit: 1207 Supervising Physician: Dr. David Primary Care Physician: [Dr. Celine Matthews ] Outpatient Specialists: [ ] Inpatient Consults: [ ] PROBLEM LIST: Suspected viral gastroenteritis Intractable vomiting-POA Leukopenia-POA Acute volume depletion Dehydration-POA MALLORY likely secondary to ATN POA COVID infection, diagnosed 09/04/2024-POA, non hypoxemic Primary hypertension CKD Diabetes mellitus PLAN: -start clear liquid diet advance as tolerated -discontinue dexamethasone -Manage abdominal pain and N/V PRN -IV fluids for hydration -patient refused Paxlovid due to pre-existing kidney disease -supportive care, manage cough and fever p.r.n -continue to monitor serum creatinine level INTERVAL HISTORY: 09/06 patient was seen and examined by bedside with family present. Patient is awake alert able to answer simple questions appropriately. Patient denies any chest pain or shortness of breadth. Denies any reoccurrence nausea or vomiting or any abdominal pain. Patient is having loose stools x3 we will send for C diff. patient's serum creatinine level noted to be back to baseline 0.8 this morning upon admission 1.1. We will discontinue patient's dexamethasone patient is asymptomatic from COVID not requiring oxygen. Patient's venous Dopplers were negative for DVT patient's CT abdomen unremarkable CT head unremarkable chest x- ray unremarkable. We will start patient on clear liquid diet and advance as tolerated if no acute events occurred and tolerating p.o. diet plan is for possible discharge tomorrow morning REVIEW OF SYSTEMS: 12 point ROS reviewed with patient. Pertinent positives mentioned above. Otherwise negative. PHYSICAL EXAM: GENERAL: alert, weak, awake oriented x 3 HEENT: EOMI, Sclera non icteric, moist mucosa NECK: Supple, no JVD, trachea midline LUNGS: Clear breath sounds bilaterally. No wheezes HEART: Regular rate and rhythm. Normal S1 and S2, without murmurs ABD: Abdomen soft, nontender. Bowel sounds present EXT: No clubbing cyanosis or edema NEURO: Alert and oriented to person, follows commands Vital Signs (last 8hr) Date Time Temp Pulse Resp B/P (MAP) Pulse Ox O2 Delivery O2 Flow Rate FiO2 09/06/24 15:34 98.1 59 18 151/52 95 Room Air 5/24/25 11:56 97.2 59 18 146/61 97 Room Air LABS: Hematology Labs: Test 09/06/24 05:30 09/05/24 19:00 Range/Units White Blood Count 2.8 L 4.8-10.8 K/uL Red Blood Count 3.86 L 4.00-5.50 MIL/uL Hemoglobin 11.5 L 12.0-16.0 g/dL Hematocrit 34.8 L 36-48 % Mean Corpuscular Volume 90.2 79-99 fL Mean Corpuscular Hemoglobin 29.8 27.0-33.0 pg Mean Corpuscular Hemoglobin Concent 33.0 32.0-36.0 g/dL Red Cell Distribution Width 12.6 11.0-15.5 % Platelet Count 160 130-400 K/uL Mean Platelet Volume 10.1 7.5-10.5 fL Immature Granulocyte % (Auto) 0.0 0-1 % Neutrophils (%) (Auto) 35.0 L 40.0-77.0 % Lymphocytes (%) (Auto) 50.9 21.0-51.0 % Monocytes (%) (Auto) 14.1 H 3.0-13.0 % Eosinophils (%) (Auto) 0.0 0.0-8.0 % Basophils (%) (Auto) 0.0 0.0-5.0 % Neutrophils # (Auto) 1.0 L 1.8-7.7 K/uL Lymphocytes # (Auto) 1.4 1.0-4.8 K/uL Monocytes # (Auto) 0.4 0.1-1.0 K/uL Eosinophils # (Auto) 0.00 0.00-0.70 K/uL Basophils # (Auto) 0.00 0.00-0.20 K/uL Absolute Immature Granulocyte (auto 0.00 0-1 K/uL Nucleated Red Blood Cells 0.0 0.0-0.19 % Segmented Neutrophils % 59 40-70 % Band Neutrophils % 1 0-2 % Lymphocytes % (Manual) 25 22-44 % Monocytes % (Manual) 15 H 2-9 % Differential Comment MANUAL DIFFERENTIAL White Cell Morphology Comment CONSISTENT W/DIFF Platelet Morphology Comment ADEQUATE Red Blood Cell Morphology See comments Chemistry Labs: Test 09/06/24 15:20 09/06/24 05:30 09/05/24 19:00 Range/Units Whole Blood Glucose 163 #H 70-110 MG/DL Sodium Level 140 136-145 mmol/L Potassium Level 3.8 3.5-5.1 mmol/L Chloride Level 106 101-111 mmol/L Carbon Dioxide Level 27 21-32 mmol/L Blood Urea Nitrogen 13 7-18 mg/dL Creatinine 0.8 0.5-1.0 mg/dL Glomerular Filtration Rate Calc 74 >90 mL/min Random Glucose 94 70-105 mg/dL Total Calcium 8.5 8.5-10.1 mg/dL Phosphorus Level 3.4 2.5-4.9 mg/dL Magnesium Level 2.20 1.80-2.40 mg/dL Thyroid Stimulating Hormone (TSH) 1.64 0.36-3.74 uIU/mL Ferritin 157 H 15-150 ng/mL Total Bilirubin 0.5 0.2-1.0 mg/dL Direct Bilirubin 0.1 0.0-0.3 mg/dL Aspartate Amino Transf (AST/SGOT) 55 H 10-37 U/L Alanine Aminotransferase (ALT/SGPT) 58 12-78 U/L Alkaline Phosphatase 69 50-136 U/L Total Creatine Kinase 56 # 21-232 U/L Troponin I High Sensitivity 11 4-50 ng/L C-Reactive Protein, Quantitative 3.00 0.5-3.0 mg/L B-Type Natriuretic Peptide 44 0-100 pg/mL Total Protein 7.4 6.0-8.3 g/dL Albumin 3.6 3.5-5.0 g/dL Amylase Level 80 25-115 U/L Lipase 63 16-77 U/L Coagulation Labs: Test 09/06/24 05:30 09/05/24 19:00 Range/Units Prothrombin Time 11.1 9.6-11.6 SEC Prothromb Time International Ratio 1.05 0.85-1.15 D-Dimer Quantitative (PE/DVT) 825 *H 0-500 ng/mL DIAGNOSTICS / RADIOLOGY RESULTS: na PLAN NEURO: Minimize central acting medications as possible. Maintain fall precautions, adequate lighting during the day PULMONARY: Supplemental 02 as needed. Maintain aspiration precautions at all times CARDIOVASCULAR: Follow hemodynamics. Vital signs per facility protocol GI & NUTRITION: Continue with nutritional support. Continue stool softeners and laxatives as needed. KIDNEYS & ELECTROLYTES: Strict monitoring of intake, output and overall fluid balance. Avoid nephrotoxic medications to the extent possible. Medications to be dosed according to renal function. Monitor electrolytes and replace as needed ENDOCRINE: Maintain blood glucose between 100-180 at all times. Hypoglycemia protocol in place INFECTIOUS DISEASE: Trend temperature, WBC and procalcitonin level Follow cultures, deescalate antibiotics as soon as possible. Panculture if new onset fever ONCOLOGY/HEMATOLOGY/COAGULATION: Monitor for s/s of bleeding Monitor hemoglobin, coagulation studies as needed SKIN: Pressure ulcer prevention per facility protocol Specialty mattress ORTHO/REHAB: Continue PT/OT Prophylaxis: Continue GI and DVT prophylaxis Code Status: Full Resuscitation Disposition: TBD Other: Case discussed with supervising physician plan of care agreed upon CARLIE LICEA September 06, 2024 16:14
--- NOTE | 2024-09-06 18:30 | NUR ---
SPECIMEN PATIENT WITH FOUR EPISODES OF DIARRHEA. PER THE PATIENT WAS HAVING DIARRHEA AT HOME PRIOR TO HOSPITAL ADMISSION. DIARRHEA STARTED TODAY SINCE ADMISSION. S/W CARLIE CHOI TO SEND FOR C-DIFF. C-DIFF SENT.
--- NOTE | 2024-09-06 18:51 | NUR ---
CALL MADE TO DAUGHTER TO [place] PLANNING. PATIENT LIVES IN OWN HOME WITH HER NIECE AND NEPHEW NOW ALSO RESIDING THER FOR SUPPORT. PRIMARY SENIOR FINANCIAL REPORTING ACCOUNTANT IS DAUGHTER SILVIA CHAPPELL WHO TAKES PATIENT TO APPOINTMENTS, FOLLOWS REGULARLY WITH DR. TERENCE CHAPPELL. HAS A CANE, STANDARD WALKER AND A SHOWER CHAIR. REQUIRES SOME ASSISTANCE TO AMBULATE.HOME IS SAFE AND ACCESSIBLE, DENIES FINANACIAL STRAIN. NO OTHER SERVICES. PLAN IS HOME . FIRST TIME EVERY BEING ADMITTED TO HOSPITAL AND FIRST TIME HAVING COVID Addendum: 09/06/24 at 1855 by MARGARITO NEUMANN RN CM Amended: Links added.
[2024-09-07] VITALS: BP 149/56; PULSE 53; RESP 17; TEMP 97.8
[2024-09-07 04:00] VITALS: BP 152/53; PULSE 52; RESP 17; TEMP 97.7
[2024-09-07] MEDS: BENZONATATE 100 MG CAPSULE PO PRN (05:15)
[2024-09-07 05:37] LABS: HEMATOCRIT 34.1 % (36-48); MEAN CORPUSCULAR HGB CONC 33.1 g/dL (32.0-36.0); MEAN CORPUSCULAR VOLUME 90.5 fL (79-99); RED BLOOD CELL COUNT(AUTO) 3.77 MIL/uL (4.00-5.50); RED CELL DISTRIBUTION WIDTH 12.7 % (11.0-15.5); WHITE BLOOD COUNT (AUTO) 3.1 K/uL (4.8-10.8)
[2024-09-07 06:00] LABS: CREATININE 0.8 mg/dL (0.5-1.0); POTASSIUM 4.2 mmol/L (3.5-5.1)
[2024-09-07 07:27] VITALS: PULSE 69; RESP 17; O2SAT 96
[2024-09-07 08:30] VITALS: O2SAT 96
[2024-09-07 08:56] VITALS: BP 155/57; PULSE 54; RESP 20; TEMP 97.9
[2024-09-07 12:01] VITALS: BP 134/33; PULSE 48; RESP 22; TEMP 98.6
[2024-09-07] MEDS ORDERED: CEFD300C3 PO (13:31)
[2024-09-07] MEDS ORDERED: BENZ-226 PO (13:31)
--- NOTE | 2024-09-07 15:07 | NUR ---
PATIENT DISCHARGED PERIPHERAL LINE REMOVED WITHOUT COMPLICATIONS. CATHETER INTACT. DISCHARGE INSTRUCTIONS GIVEN. PRESCRIPTIONS SENT TO PHARMACY. PATIENT AWARE TO F/U WITH PCP IN 1-3 DAYS. ALL QUESTIONS ANSWERED.
--- NOTE | 2024-09-08 00:28 | DS ---
[facility] DISCHARGE SUMMARY Date Patient Seen: September 08, 2024 Time of Visit: 00:14 Supervising Physician: [ Fabio David MD] Primary Care Physician: [Dr. Celine Matthews ] Outpatient Specialists: [ ] Inpatient Consults: [ ] PROBLEM LIST: Suspected viral gastroenteritis, resolving Intractable vomiting-POA, resolved Leukopenia-POA, resolving likley from viral gastroenteritis Acute volume depletion Dehydration-POA, resolved MALLORY likely secondary to ATN POA, resolved COVID infection, diagnosed 09/04/2024-POA, non hypoxemic Primary hypertension CKD Diabetes mellitus HOSPITAL COURSE: HPI 09/05/24- Patient is 84-year-old female with PMH significant for CKD, HTN and diabetes mellitus who was presented to the ED accompanied by her daughter concerning intractable vomiting and persistent dizziness. Patient was in her usual state of health when on Sunday she started to feel sick. Daughter claims that she was feeling unsteady and could not walk due to severe dizziness. Yesterday, she went to her PCP and was screened for COVID which turned back positive and was started on azithromycin p.o.. However, today patient started to feel weak due to nonstop vomiting. She could not hold anything down. Daughter denies any previous history of gastroparesis. Apparently, patient has never been hospitalized in the past and never had COVID infection at all. Significant negatives were fever, chills, chest pain, back pain, dysuria, urinary symptoms or syncope. Patient apparently broke out in cold sweats today. At the ED, her preliminary lab works were concerning for leukopenia of 2.7 with mild MALLORY. Patient was given Zofran and IV fluids. A follow-up CT scan of the abdomen and pelvis was unremarkable. Physical assessment was unrevealing with no focal neurologic deficits her abdominal tenderness. Goals of care were discussed with the patient and daughter verbalizes understanding and agreement.] 09/06 patient was seen and examined by bedside with family present. Patient is awake alert able to answer simple questions appropriately. Patient denies any chest pain or shortness of breadth. Denies any reoccurrence nausea or vomiting or any abdominal pain. Patient is having loose stools x3 we will send for C diff. patient's serum creatinine level noted to be back to baseline 0.8 this morning upon admission 1.1. We will discontinue patient's dexamethasone patient is asymptomatic from COVID not requiring oxygen. Patient's venous Dopplers were negative for DVT patient's CT abdomen unremarkable CT head unremarkable chest x- ray unremarkable. We will start patient on clear liquid diet and advance as tolerated if no acute events occurred and tolerating p.o. diet plan is for possible discharge tomorrow morning. 08/15/24 - Pts nausea and vomiting resolved. She denies any episodes of chest pain, sob or palpitations. She is ambulating with PT and tolerating well with walker. CBC similar to yesterday white count improving 3.1 today. HH 11.3/34.1. Likeley leukopenia from viral infection but i have spoke to pt and family on need to follow up on it with PCP. They both verbalized understanding. D-Dimer 825 on admission, she has a low well's score 0.0 Low risk. Chemistries unremarkable today. she remained afebrile and hemodynamically stable. She is stable for discharge home with daughter. Instructed daughter on the importance for her to finish her azithromycin po at home (3 more pills left) and I have Rx cefdinir abx as well for empiric coverage. Instructed both pt and daughter on importance to follow up with PCP in 1-3 days and they have agreed. 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 09/05/24- CT of the head without contrast- IMPRESSION: No acute intracranial process identified. 09/05/24- CT abdomen and pelvis without contrast IMPRESSION: No evidence for any acute intra-abdominal or pelvic process. 09/06/24 venous Doppler of bilateral lower extremities- IMPRESSION: No sonographic evidence for deep venous thrombosis within the bilateral lower extremity veins. Pt hemodynamically stable and afebrile at time of discharge. PCP notified of patients admission, hospital course and discharge. Home meds: As per pt and daughter she has 3 more zithromax 250mg pills left from prescription prior to admission, informed them to complete the 3 that are left and see below for further home meds and RX given: New Medications: Cefdinir (Cefdinir) 300 Mg Capsule 1 CAP PO BID for 7 Days, #20 CAP 0 Refills Benzonatate (Benzonatate) 100 Mg Capsule 100 MG PO Q8H PRN for COUGH/COLD SYMPTOMS, #60 CAP 0 Refills only as needed for cough Continued Medications: Alendronate Sodium (Alendronate Sodium) 70 Mg Tablet 70 MG PO QWEEK, TAB Aspirin (Aspir 81) 81 Mg Tablet.dr 81 MG PO DAILY, TAB Atorvastatin Calcium (Atorvastatin Calcium) 20 Mg Tablet 20 MG PO DAILY, TAB Cholecalciferol (Vitamin D3) (Vitamin D3) 1,000 Unit Capsule 1000 UNIT PO DAILY, CAP Glimepiride (Glimepiride) 4 Mg Tablet 4 MG PO DAILYBKFST, TAB Lisinopril/Hydrochlorothiazide (Lisinopril-Hctz 20-25 mg Tab) 1 Each Tablet 1 EACH PO DAILY, TAB Losartan Potassium (Losartan Potassium) 25 Mg Tablet 1 TAB PO DAILY Sitagliptin Phosphate (Januvia) 100 Mg Tablet 1 TAB PO DAILY PHYSICAL EXAM: GENERAL: alert, weak, awake oriented x 3 HEENT: EOMI, Sclera non icteric, moist mucosa NECK: Supple, no JVD, trachea midline LUNGS: Clear breath sounds bilaterally. No wheezes HEART: Regular rate and rhythm. Normal S1 and S2, without murmurs ABD: Abdomen soft, nontender. Bowel sounds present EXT: No clubbing cyanosis or edema NEURO: Alert and oriented to person, follows commands FOLLOW-UP: Follow-up with PCP in 2-3 days RECOMMENDATIONS: See Discharge Instructions This case was seen and discussed with my supervising physician. More than 30 minutes spent on discharge process, including evaluation of the patient, discussion with nursing staff, medication reconciliation and follow-up appointments ATTESTATION BY PHYSICIAN I have evaluated the patient chart, medical records, and spoke with appropriate staff. I reviewed the documentation, medical decision making, and treatment plan as noted by the mid-level provider above. I agree with the findings and plan of care. Fabio David MD, NELLY J INSTRUMENTATION DESIGNER September 08, 2024 00:28
== END 2024-09-07 15:13 | disposition home or self-care (01) ==
LOC: EDH 18:02 → UNDOADMOB 18:03 → EDHIP 18:03 → UNDOADMOB 20:25 → 4AH 21:06 → EDHIP 21:06 → 3CH 09-06 00:17 → 4AH 09-06 00:17
PROVIDERS: ADMIT Internal Medicine; ATTEND Internal Medicine
DX: U07.1 COVID-19 (principal); D72.819 Decreased white blood cell count, unspecified; N17.9 Acute kidney failure, unspecified; I12.9 Hypertensive chronic kidney disease with stage 1 through stage 4 chronic kidney disease, or unspecified chronic kidney disease; E11.22 Type 2 diabetes mellitus with diabetic chronic kidney disease; N18.9 Chronic kidney disease, unspecified; R60.0 Localized edema; E86.0 Dehydration; Z79.84 Long term (current) use of oral hypoglycemic drugs; Z79.899 Other long term (current) drug therapy
CPT/HCPCS: 96376; 96372 ×2; 96361 ×4; 96375; 99285; 82150; 82550; 80076; 83735 ×2; 84484; 80048 ×3; 83880; 82728; 83690; 85025 ×2; 85378; 87804 ×2; 82948 ×7; 86140; 87426; 36415 ×3; 71045; 70450; 74176; 93005; 94640 ×2; 96365; 96366 ×2; 84443; 84100; 85610; 86850; 86900; 86901; 87071; 87086; 87186; 87205; 87324; 93970; 85027; 97161; 97116; 97530 ×2; G0378 ×42; J7040; J7030; J2405 ×2; J1650 ×2; J0456 ×2; J8540; J1815

== ENCOUNTER 2025-02-05 17:37 | Emergency (ER) | payer OTHER ==
[~2025-02-05] VITALS: Ht 149.9 cm; Wt 64.9 kg
[~2025-02-05 17:37] MED LIST changes: +BENZ-226 PO; +CEFD300C3 PO; +LOSA25TA41 PO; +SITA100T12 PO
--- NOTE | 2025-02-05 17:48 | ERN ---
ED Note History of Present Illness Stated Complaint: DIZZINESS, NAUSEA/ VOMITING Chief Complaint: Dizzy/Light Headed Time Seen by MD: 17:42 Dictation: PATIENT IS A 84-YEAR-OLD FEMALE COMING IN FOR COMPLAINTS OF EPIGASTRIC PAIN WITH NAUSEA VOMITING ONSET THIS MORNING. NO FEVER NO CHILLS NO CHEST PAIN NO BACK PAIN. SHE DOES NOT HAVE A HEADACHE. NIH IS 0 ALERT AND ORIENTED X4 SPEECH IS CLEAR. Allergies: Coded Allergies: No Known Allergies (Unverified Allergy, 11/13/12) Home Meds Active Scripts Cefdinir (Cefdinir) 300 Mg Capsule, 1 CAP PO BID for 7 Days, #20 CAP 0 Refills Prov:ANDI DISLA AGAP 09/07/24 Benzonatate (Benzonatate) 100 Mg Capsule, 100 MG PO Q8H PRN for COUGH/COLD SYMPTOMS, #60 CAP 0 Refills only as needed for cough Prov:[facility] 09/07/24 Reported Medications Losartan Potassium (Losartan Potassium) 25 Mg Tablet, 1 TAB PO DAILY 09/05/24 Sitagliptin Phosphate (Januvia) 100 Mg Tablet, 1 TAB PO DAILY 09/05/24 Atorvastatin Calcium (Atorvastatin Calcium) 20 Mg Tablet, 20 MG PO DAILY, TAB 02/25/19 Alendronate Sodium (Alendronate Sodium) 70 Mg Tablet, 70 MG PO QWEEK, TAB 02/25/19 Aspirin (Aspir 81) 81 Mg Tablet.dr, 81 MG PO DAILY, TAB 02/25/19 Glimepiride (Glimepiride) 4 Mg Tablet, 4 MG PO DAILYBKFST, TAB 02/25/19 Cholecalciferol (Vitamin D3) (Vitamin D3) 1,000 Unit Capsule, 1000 UNIT PO DAILY, CAP 12/31/13 Lisinopril/Hydrochlorothiazide (Lisinopril-Hctz 20-25 mg Tab) 1 Each Tablet, 1 EACH PO DAILY, TAB 12/31/13 Past Medical History Past Medical History: Diabetes-Type II, Hypertension, Renal Disese Surgical History: None History: Not Applicable RN Note Reviewed/Agreed w/PFSH: Yes Review of System Dictation CONSTITUTIONAL: NEGATIVE EXCEPT FOR HPI HEAD/FACE: NEGATIVE EXCEPT FOR HPI EENT: NEGATIVE EXCEPT FOR HPI RESPIRATORY: NEGATIVE EXCEPT FOR HPI GASTROINTESTINAL/ABDOMINAL: NEGATIVE EXCEPT FOR HPI NAUSEA VOMITING WITH A EPIGASTRIC PAIN GENITOURINARY: NEGATIVE EXCEPT FOR HPI MUSCULOSKELETAL: NEGATIVE EXCEPT FOR HPI INTEGUMENTARY: NEGATIVE EXCEPT FOR HPI NEUROLOGICAL/PSYCH: NEGATIVE EXCEPT FOR HPI DIZZINESS HEMATOLOGIC/LYMPHATIC: NEGATIVE EXCEPT FOR HPI ALL SYSTEMS NEGATIVE, EXCEPT NOTED ABOVE. 13 POINT REVIEW OF SYSTEMS ASSESSED AND ALL NEGATIVE EXCEPT FOR ABOVE. Initial Vital Sign VS Vital Signs Date Time Temp Pulse Resp B/P (MAP) Pulse Ox O2 Delivery O2 Flow Rate FiO2 02/05/25 17:42 98.4 66 16 106/82 100 Room Air 0 02/05/25 18:56 21 Physical Exam Dictation VITAL SIGNS REVIEWED GENERAL APPEARANCE: ALERT, ORIENTED X 3, MILD ACUTE DISTRESS, WELL DEVELOPED, NOURISHED. HEAD AND FACE: NON-TRAUMATIC. EYES: PERRL, PINK CONJUNCTIVAS, EYELID NO TRAUMA, ANTERIOR CHAMBER WITH ARCUS SENILIS. NO NO NYSTAGMUS EARS: PINNAS INTACT AND NO SIGNS OF TRAUMA OR ERYTHEMA EAR CANALS CLEAR AND NO DISCHARGE TM NO ERYTHEMA NOSE: NO DISCHARGE, NO BLEEDING. OROPHARYNX: MOUTH NORMAL, TONGUE PINK, PHARYNX CLEAR,NO ERYTHEMA, TONSILS NO EXUDATES, NO ABSCESSES NOTED, MUCOUS MEMBRANE MOIST NECK: SUPPLE, NON-TENDER, NO THYROMEGALY, NO MASSES, NO JVD, NO BRUITS BREAST:DEFERRED CHEST:NO TENDERNESS, NO CREPITUS, NO PARADOXICAL MOVEMENT, NO RETRACTIONS LUNGS:CLEAR, WELL-VENTILATED, SYMMETRIC, NO RALES, NO WHEEZING, NO RHONCHI, NO STRIDOR, GOOD BREATH SOUNDS BILATERALLY NO FOCAL TENDERNESS HEART: REGULAR RATE, REGULAR RHYTHM, NO MURMUR, NO GALLOPS VASCULAR: NO PERIPHERAL EDEMA, ABDOMEN: SOFT, POSITIVE BOWEL SOUNDS, NONDISTENDED, NO GUARDING, NONTENDER, NO REBOUND, NO MASSES NO HEPATOMEGALY, NO SPLENOMEGALY, NO MCCARTNEY'S SIGN, NO HERNIAS. RECTAL: DEFERRED GENITAL: DEFERRED NEUROLOGICAL: NORMAL SPEECH, MOTOR FUNCTION INTACT, SENSORY FUNCTION INTACT NIH IS 0 MUSCULOSKELETAL: NECK NONTENDER, FULL RANGE OF MOTION, BACK NONTENDER, FULL RANGE OF MOTION, EXTREMITIES: NONTENDER, FULL RANGE OF MOTION SKIN: COLOR PINK, DRY, NO TURGOR, NO RASH, NO LACERATIONS, NO ABRASIONS, NO CONTUSIONS. LYMPHATIC: DEFERRED Results (Laboratory/Radiology) Laboratory/Radiology Laboratory Tests Test 02/05/25 17:55 02/05/25 18:43 02/05/25 19:46 White Blood Count 5.7 K/uL (4.8-10.8) Red Blood Count 4.14 MIL/uL (4.00-5.50) Hemoglobin 12.8 g/dL (12.0-16.0) Hematocrit 37.1 % (36-48) Mean Corpuscular Volume 89.6 fL (79-99) Mean Corpuscular Hemoglobin 30.9 pg (27.0-33.0) Mean Corpuscular Hemoglobin Concent 34.5 g/dL (32.0-36.0) Red Cell Distribution Width 12.5 % (11.0-15.5) Platelet Count 217 K/uL (130-400) Mean Platelet Volume 10.6 fL (7.5-10.5) H Immature Granulocyte % (Auto) 0.5 % (0-1) Neutrophils (%) (Auto) 79.5 % (40.0-77.0) H Lymphocytes (%) (Auto) 17.2 % (21.0-51.0) L Monocytes (%) (Auto) 2.6 % (3.0-13.0) L Eosinophils (%) (Auto) 0.0 % (0.0-8.0) Basophils (%) (Auto) 0.2 % (0.0-5.0) Neutrophils # (Auto) 4.6 K/uL (1.8-7.7) Lymphocytes # (Auto) 1.0 K/uL (1.0-4.8) Monocytes # (Auto) 0.2 K/uL (0.1-1.0) Eosinophils # (Auto) 0.00 K/uL (0.00-0.70) Basophils # (Auto) 0.01 K/uL (0.00-0.20) Absolute Immature Granulocyte (auto 0.03 K/uL (0-1) Nucleated Red Blood Cells 0.0 % (0.0-0.19) Sodium Level 144 mmol/L (136-145) Potassium Level 4.1 mmol/L (3.5-5.1) Chloride Level 105 mmol/L (101-111) Carbon Dioxide Level 29 mmol/L (21-32) Blood Urea Nitrogen 16 mg/dL (7-18) Creatinine 0.8 mg/dL (0.5-1.0) Glomerular Filtration Rate Calc 74 mL/min (>90) Random Glucose 192 mg/dL (70-105) H Total Calcium 10.1 mg/dL (8.5-10.1) Troponin I High Sensitivity 8 ng/L (4-50) Lipase 52 U/L (16-77) SARS-CoV-2 Antigen (Rapid) PRESUMPTIVE NEGATIVE Urine Color COLORLESS (YELLOW) Urine Appearance CLEAR (CLEAR) Urine pH 7.0 (5.0-8.0) Urine Specific [place] 1.008 (1.001-1.031) Urine Protein NEGATIVE mg/dL (NEGATIVE) Urine Glucose (UA) NEGATIVE mg/dL (NEGATIVE) Urine Ketones 5 mg/dL (NEGATIVE) H Urine Occult Blood NEGATIVE (NEGATIVE) Urine Nitrate NEGATIVE (NEGATIVE) Urine Bilirubin NEGATIVE mg/dL (NEGATIVE) Urine Urobilinogen 0.2 mg/dL (0.2-1.0) Urine Leukocyte Esterase NEGATIVE Melody/uL Labs Reviewed?: Yes EKG: (+) NSR EKG Comment: 1756/EKG NORMAL SINUS RHYTHM/HEART RATE 64/AXIS NORMAL/NO ECTOPY ED Course ED Course Orders Procedure Category Date Status Time Cbc With Differential LAB 02/05/25 Complete 17:45 Troponin I High LAB 02/05/25 Complete Sensitivity 17:45 Urinalysis Profile LAB 02/05/25 Complete 17:45 12 Lead Ekg Tracing- EKG 02/05/25 Complete Technical 17:45 0.9%Nacl 1000ml (Ns PHA 02/05/25 Complete 1000ml) 18:00 Ondansetron 4mg Inj PHA 02/05/25 Complete (Zofran 4mg Inj) 18:00 Lipase LAB 02/05/25 Complete 17:45 Basic Metabolic Panel LAB 02/05/25 Complete 17:45 Covid19 (Sars Antigen LAB 02/05/25 Complete Rapid) 17:45 Current Medications Medications (Trade) Dose Ordered Sig/Monique Route PRN Reason Start Time Stop Time Status Last Admin Dose Admin Ondansetron HCl (zoFRAN 4MG INJ) 4 mg ONCE ONCE IVP 02/05/25 18:00 02/05/25 18:01 DC 02/05/25 18:56 Sodium Chloride 1,000 ml @ 0 mls/hr ONCE ONCE IV 02/05/25 18:00 02/05/25 18:01 DC 02/05/25 18:56 Vital Signs Date Time Temp Pulse Resp B/P (MAP) Pulse Ox O2 Delivery O2 Flow Rate FiO2 02/05/25 20:01 97.9 64 16 138/63 99 Room Air* 0 21 02/05/25 18:56 97.9 60 16 163/60 98 Room Air* 0 21 02/05/25 17:42 98.4 66 16 106/82 100 Room Air 0 2045/HEMODYNAMICALLY STABLE NO NAUSEA VOMITING AT THIS TIME SHE WISHES TO BE HOME SHE IS AWARE THAT WORKUP IS NEGATIVE EXCEPT FOR HYPERGLYCEMIA HEART Score Response (Comments) Value History: Low suspicion (0) 0 Age: > 65yrs (+2) 2 Risk Factors: 1-2 risk factors (+1) 1 Initial Troponin: Normal limit (0) 0 Total 3 Medical Decision Making MDM MDM: DIFFERENTIAL DIAGNOSIS: ACS/AMI/ELECTROLYTE IMBALANCE /DEHYDRATION/PANCREATITIS/GASTRITIS/ARRHYTHMIA/UTI RATIONALE: TESTS CONSIDERED AND ORDERED SECONDARY TO SHARED DECISION MAKING I NCLUDE: EKG/LABS/RADIOLOGY PREVIOUS OUTSIDE RECORDS REVIEWED: OLD ER VISITS. RISK OF COMPLICATION AND/OR MORBIDITY OR MORTALITY OF PATIENT MANAGEMENT: NONE MEDICATIONS-PER MEDICATION RECONCILIATION NEED FOR HOSPITALIZATION: PATIENT DOES NOT MEET CRITERIA FOR HOSPITALIZATION. NONE NEED FOR EMERGENCY MAJOR/MINOR SURGERY: NO THERE ARE NO SOCIAL CONCERNS WITH THIS PATIENT. PRESCRIPTION DRUG MANAGEMENT ZOFRAN PRESCRIPTIONS WILL INCLUDE SYMPTOMATIC CARE PATIENT'S PRIOR EXTERNAL MEDICAL RECORDS FROM OTHER ER VISITS WERE REVIEWED BY ME INDICATED. PRIOR TESTING AND RESULTS FROM PREVIOUS VISITS WERE REVIEWED. PRIOR TESTS WERE TAKEN INTO ACCOUNT WITH MEDICAL DECISION MAKING AND RESOURCE UTILIZATION, INDEPENDENT HISTORIAN/HISTORIANS WERE USED TO OBTAIN COMPLETE MEDICAL HISTORY. I INDEPENDENTLY INTERPRETED THE TEST THAT WERE PERFORMED, RESULTS WERE REVIEWED BY ME AND CONSIDERED FINDINGS ON RADIOLOGY IF ORDERED. MEDICAL MANAGEMENT AND EXAMINATION INTERPRETATION DISCUSSIONS WERE HAD BY ME WITH OTHER QUALIFIED HEALTHCARE PROFESSIONALS INDICATED FOR THE PATIENT'S CARE. DX & DISP Disposition: Discharge Departure Impression: Primary Impression: Nausea and vomiting Additional Impression: Diabetes mellitus with hyperglycemia Condition: Stable Scripts Ondansetron (Ondansetron Odt) 4 Mg Tab.rapdis 4 MG PO Q6HPRN PRN for nausea, #16 TAB 0 Refills Prov: TANIA LOCK BULB PACKER 02/05/25 Additional Instructions: FOLLOW-UP WITH PRIMARY CARE PROVIDER IN 1 TO 2 DAYS. TAKE MEDICATIONS DIRECTED HERE IN THE EMERGENCY ROOM. OKAY TO CONTINUE HOME MEDICATIONS UNLESS OTHERWISE DISCUSSED DURING YOUR VISIT IN THE EMERGENCY ROOM TODAY. RETURN TO YOUR NEAREST EMERGENCY ROOM IF SYMPTOMS WORSEN OR IF THERE IS NO IMPROVEMENT. CALL 911 IF YOU NEED IMMEDIATE ASSISTANCE. TAKE TYLENOL OR MOTRIN [id number] NEEDED AND IF NO CONTRAINDICATIONS ARE PRESENT. INCREASE ORAL HYDRATION. A WOUND CULTURE OR URINE CULTURE WAS ORDERED HERE IN THE EMERGENCY ROOM DEPARTMENT PLEASE FOLLOW-UP WITH PRIMARY CARE PROVIDER AND ADVISE THEM TO GET REPEAT PORTS FROM OUR FACILITY. IF YOU HAD ANY RADHA WRAP/SPLINTS THAT WERE APPLIED HERE, PLEASE DO NOT REMOVE THEM UNTIL YOU SEE YOUR PRIMARY CARE OR SPECIALTY. DIET AND ACTIVITY TOLERATED. SEE YOUR PRIMARY CARE DOCTOR FOR FOLLOW UP IN THE NEXT 1-2 DAYS. Referrals: TERENCE CHAPPELL MD (PCP) Time of Disposition: 20:48 I have reviewed the case, and I agree with, Diagnosis and Plan TANIA LOCKP Feb 05, 2025 17:47
[2025-02-05 18:02] LABS: IMMATURE GRANULOCYTE ABSOLUTE 0.03 K/uL (0-1); NUCLEATED RED BLOOD CELLS 0.0 % (0.0-0.19); PLATELET COUNT (AUTO) 217 K/uL (130-400); RED BLOOD CELL COUNT(AUTO) 4.14 MIL/uL (4.00-5.50); RED CELL DISTRIBUTION WIDTH 12.5 % (11.0-15.5); WHITE BLOOD COUNT (AUTO) 5.7 K/uL (4.8-10.8)
--- NOTE | 2025-02-05 18:03 | EKG ---
[facility] Test Date: 2025-02-05 Test Time: 17:56:33 Pat Name: LIBIA SEAY Department: ED Room: Gender: F [employer]: 0802 : 1940 Requested By: TANIA LOCK Order Number: [id number] Reading MD: Carolina Perez Measurements Intervals [place] Rate: 64 P: 60 VT: 151 QRS: -4 QRSD: 102 T: 27 QT: 434 QTc: 450 Interpretive Statements Sinus rhythm Compared to ECG 09/05/2024 18:53:30 Myocardial infarct finding no longer present Electronically Signed On 02-06-2025 11:44:14 CDT by Carolina Perez Please click the below link to view image of tracing.
[2025-02-05 18:10] LABS: CREATININE 0.8 mg/dL (0.5-1.0); GLOMERULAR FILTR. RATE CALC 74.0 mL/min (>90); GLUCOSE,RANDOM 192.0 mg/dL (70-105); SODIUM SERUM 144.0 mmol/L (136-145); UREA NITROGEN, BLOOD 16.0 mg/dL (7-18)
[2025-02-05] MEDS: 0.9%NACL 1000ML 1,000 ML IV ONE (18:56)
[2025-02-05 20:00] LABS: APPEARANCE,URINE CLEAR (CLEAR); GLUCOSE, URINE (UA) NEGATIVE (NEGATIVE); LEUKOCYTE ESTERASE ,URINE NEGATIVE Leu/uL (NEGATIVE); NITRATE,URINE NEGATIVE (NEGATIVE); OCCULT BLOOD,URINE NEGATIVE (NEGATIVE)
[2025-02-05 20:06] LABS: ADD UA MICROSCOPIC NO
[2025-02-05] MEDS ORDERED: ONDA-243 PO (20:49)
[2025-02-05 21:01] VITALS: BP 132/60; PULSE 66; RESP 16; TEMP 98; O2SAT 100
--- NOTE | 2025-02-05 21:01 | NUR ---
patient able to ambulate independently
== END 2025-02-05 21:03 | disposition home or self-care (01) ==
LOC: EDH 17:37
DX: R11.2 Nausea with vomiting, unspecified (principal); E11.65 Type 2 diabetes mellitus with hyperglycemia; R42 Dizziness and giddiness; I10 Essential (primary) hypertension; Z79.82 Long term (current) use of aspirin; Z79.84 Long term (current) use of oral hypoglycemic drugs; Z79.899 Other long term (current) drug therapy; Z20.822 Contact with and (suspected) exposure to COVID-19
CPT/HCPCS: 99284; 96374; 96361; 87426; 84484; 80048; 83690; 85025; 81003; 36415; 93005; J7030; J2405

== ENCOUNTER → 2025-03-25 | Outpatient (CLI) | payer OTHER ==
[~2025-03-25] MED LIST changes: +ONDA-243 PO
== END | disposition home or self-care (01) ==
LOC: RAH 13:10
PROVIDERS: ATTEND Family Medicine
DX: Z12.31 Encounter for screening mammogram for malignant neoplasm of breast (principal)
CPT/HCPCS: 77067